=== PATIENT | male | born 1975 | race Caucasian/White ===

== ENCOUNTER → 2020-06-14 | Outpatient (CLI) | payer OTHER ==
--- NOTE | 2020-06-14 16:57 | RAD ---
EXAM: CT head without contrast INDICATION: Traumatic head injury COMPARISON: None TECHNIQUE: Axial CT imaging through the head without intravenous contrast. Coronal reformats were obtained One or more of the following individualized dose reduction techniques were utilized for this examination: 1. Automated exposure control 2. Adjustment of the mA and/or kV according to patient size 3. Use of iterative reconstruction technique. FINDINGS: The ventricles and sulci are normal. Acosta-white matter differentiation is maintained. There is no intracranial hemorrhage, acute infarct, or mass lesion. Basal cisterns are clear. The skull and scalp are intact. Paranasal sinuses and mastoid air cells are clear. Globes and orbits are intact. IMPRESSION: No acute intracranial abnormality. Electronically signed by: Theresa Aleman MD (06/14/2020 4:54 PM) [id number]
== END | disposition home or self-care (01) ==
LOC: CT 16:28
PROVIDERS: ATTEND Preventive Medicine Occupational Medicine
DX: S09.90XA Unspecified injury of head, initial encounter (principal); V09.9XXA Pedestrian injured in unspecified transport accident, initial encounter; Y93.89 Activity, other specified; Y92.89 Other specified places as the place of occurrence of the external cause; Y99.8 Other external cause status
CPT/HCPCS: 70450